=== PATIENT | female | born 1960 | race Caucasian/White ===

== ENCOUNTER → 2017-12-04 | Outpatient (CLI) | payer OTHER ==
[~2017-12-04] MED LIST: DULO30 PO; GABA600 PO; HYDACE5 PO; LISI20 PO; META800 PO; METCAR500 PO; MILN100T PO; SIMV40 PO; TRAM50 PO; TRAZ50 PO
== END ==
LOC: LAB SHORT 12:12 → PLD 12:12
DX: D48.5 Neoplasm of uncertain behavior of skin (principal)
CPT/HCPCS: 88305

== ENCOUNTER → 2018-09-10 | Outpatient (CLI) | payer OTHER | END | disposition home or self-care (01) | LOC: LAB SHORT 11:37 → PLD 11:37 | DX: D48.5 Neoplasm of uncertain behavior of skin (principal) | CPT/HCPCS: 88305 ==

== ENCOUNTER → 2019-01-06 | Outpatient (CLI) | payer OTHER | END | disposition home or self-care (01) | LOC: PLD 11:14 → LAB SHORT 11:14 | DX: D48.5 Neoplasm of uncertain behavior of skin (principal) | CPT/HCPCS: 88305 ==

== ENCOUNTER → 2019-11-11 | Outpatient (CLI) | payer OTHER | LOC: PLD 11:37 → LAB SHORT 11:37 | DX: L98.8 Other specified disorders of the skin and subcutaneous tissue (principal) | CPT/HCPCS: 88305; 88312 ==

== ENCOUNTER → 2020-10-24 | Outpatient (CLI) | payer OTHER | END | disposition home or self-care (01) | LOC: LAB SHORT 11:23 → PLD 11:23 | DX: D22.72 Melanocytic nevi of left lower limb, including hip (principal) | CPT/HCPCS: 88305 ==

== ENCOUNTER → 2023-02-04 | Outpatient (CLI) | payer OTHER | LOC: LAB 18:43 → LAB SHORT 18:43 | DX: N39.0 Urinary tract infection, site not specified (principal) | CPT/HCPCS: 87077; 87086; 87186 ==

== ENCOUNTER 2023-06-05 06:38 | Day surgery (SDC) | payer OTHER ==
[~2023-06-05] VITALS: Ht 165.1 cm; Wt 63.2 kg
[2023-06-05] MEDS ORDERED: LAMO100 (06:53)
[2023-06-05] MEDS ORDERED: HYDCHL12.5 (06:53)
[2023-06-05] MEDS ORDERED: BUPR150ER (06:54)
[2023-06-05] MEDS ORDERED: EUTHYROX50 MCG (06:54)
--- NOTE | 2023-06-05 07:00 | NUR ---
06/05/23 0700 Myrna Brooks TETRACAINE TO THE RIGHT EYE AT 0655 PLEDGET TO THE RIGHT EYE AT 0657 BY [email or web address].[email or web address]
[2023-06-05 08:27] VITALS: BP 127/75
--- NOTE | 2023-06-05 08:47 | NUR ---
06/05/23 0847 Jonas Rolon IV REMOVED INTACT. SITE WNL.
== END 2023-06-05 08:44 | disposition home or self-care (01) ==
LOC: ORSCSDS 06:38
PROVIDERS: Ophthalmology
PROC: 08RJ3JZ Replacement of Right Lens with Synthetic Substitute, Percutaneous Approach (ICD-10-PCS; principal; 2023-06-05 08:00)
DX: H25.13 Age-related nuclear cataract, bilateral (principal); I10 Essential (primary) hypertension; E07.9 Disorder of thyroid, unspecified; Z79.899 Other long term (current) drug therapy
CPT/HCPCS: J2001; J2250; J2704; J3301; J7040; V2632

== ENCOUNTER 2023-06-12 10:57 | Day surgery (SDC) | payer OTHER ==
[~2023-06-12] VITALS: Ht 165.1 cm; Wt 63.8 kg
[~2023-06-12 10:57] MED LIST changes: +BUPR150ER; +EUTHYROX50 MCG; +HYDCHL12.5; +LAMO100
[2023-06-12] MEDS ORDERED: BUPR150ER PO (11:37)
[2023-06-12] MEDS ORDERED: LISI20 PO (11:37)
--- NOTE | 2023-06-12 11:43 | NUR ---
06/12/23 [address] IN LEFT EYE AT 1136. PLEDGET PLACED IN LEFT EYE AT 1138 PATIENT TOLERATED WELL.
[2023-06-12 12:47] VITALS: BP 121/67
--- NOTE | 2023-06-12 12:54 | NUR ---
06/12/23 1254 Myrna Brooks FLUSHED MEDIPORT AND DISCONTINUED SEE EMAR, APPLIED BANDAID TO SITE.
== END 2023-06-12 13:02 | disposition home or self-care (01) ==
LOC: ORSCSDS 10:57
PROVIDERS: Ophthalmology
PROC: 08RK3JZ Replacement of Left Lens with Synthetic Substitute, Percutaneous Approach (ICD-10-PCS; principal; 2023-06-12 12:30)
DX: H25.12 Age-related nuclear cataract, left eye (principal); Z96.1 Presence of intraocular lens; I10 Essential (primary) hypertension; M79.7 Fibromyalgia
CPT/HCPCS: J1642; J2250; J3010; J3301; J7040; V2632